=== PATIENT | male | born 1945 | race Caucasian/White ===

== ENCOUNTER 2023-12-17 11:19 | Inpatient (IN) | payer MEDICARE, OTHER ==
[~2023-12-17] VITALS: Ht 182.9 cm; Wt 108.9 kg
[2023-12-17 12:36] LABS: BASOPHILS # (AUTO) 0.1 (0.0-0.1); BASOPHILS % 0.7 % (0.0-1.0); EOSINOPHILS # (AUTO) 0.1 (0.0-0.4); EOSINOPHILS % 1.6 % (0.0-6.0); HEMATOCRIT 42.2 % (38.2-49.6); HEMOGLOBIN 13.8 g/dL (14.0-18.0); LYMPHOCYTES # (AUTO) 1.3 (1.0-3.2); LYMPHOCYTES % 14.5 % (18.0-39.1); MEAN CORPUSCULAR HEMOGLOBIN 30.9 pg (28-32); MEAN CORPUSCULAR HGB CONC 32.7 g/dL (31-35); MEAN CORPUSCULAR VOLUME 94.4 fL (81-99); MONOCYTES # (AUTO) 0.6 (0.2-0.8); MONOCYTES % 6.5 % (4.4-11.3); NEUTROPHILS # (AUTO) 6.6 (2.1-6.9); NEUTROPHILS % 76.2 % (38.7-80.0); PLATELET COUNT 239 x10e3/uL (140-360); RED BLOOD COUNT 4.47 x10e6/uL (4.3-5.7); RED CELL DISTRIBUTION WIDTH 15.8 % (11.7-14.4)
[2023-12-17 12:45] LABS: INR 1.45; PROTHROMBIN TIME 17.9 seconds (11.9-14.5)
[2023-12-17 12:46] LABS: PARTIAL THROMBOPLASTIN TIME 35.2 seconds (23.8-35.5)
[2023-12-17] MEDS: SODIUM CHLORIDE 0.9% 1000ML 1,000 ML IV STA (12:48)
[2023-12-17] MEDS: METHYLPREDNISOLONE SOD SUCC 125 MG/2ML VIAL IV STA (12:48)
[2023-12-17 12:55] LABS: ALBUMIN 3.7 g/dL (3.5-5.0); ALBUMIN/GLOBULIN RATIO 1.1 (0.8-2.0); CALCIUM 9.2 mg/dL (8.4-10.2); CREATININE, SERUM 1.38 mg/dL (0.72-1.25); MAGNESIUM 1.5 MG/DL (1.3-2.1)
[2023-12-17 13:00] LABS: TROPONIN I 0.005 ng/mL (0-0.300)
[2023-12-17] MEDS: FUROSEMIDE INJ 10 MG/ML 4 ML VIAL IV ONE (14:20)
[2023-12-17] MEDS ORDERED: ONDANSETRON HCL INJ 2MG/ML 2ML 2 MG/ML VIAL IV PRN ×3 (14:45→16:45)
[2023-12-17 15:03] VITALS: PULSE 74; RESP 20; O2SAT 96
[2023-12-17] MEDS: FAMOTIDINE 20 MG/2 ML VIAL IV SCH (16:31)
[2023-12-17] MEDS: METOPROLOL TARTRATE 25 MG TAB PO SCH (16:34)
[2023-12-17] MEDS: DIGOXIN INJ 0.25 MG/ML 2 ML AMP IV ONE ×2 (16:35→18:00)
[2023-12-17] MEDS ORDERED: POLYETHYLENE GLYCOL 3350 17 GM PACK PO PRN (16:45)
[2023-12-17] MEDS ORDERED: METOPROLOL TARTRATE INJ 1 MG/ML VIAL IV PRN (16:45)
[2023-12-17] MEDS ORDERED: ACETAMINOPHEN 325 MG TAB PO PRN (16:45)
[2023-12-17] MEDS: DOCUSATE SODIUM 100 MG CAP PO SCH (17:58)
[2023-12-17] MEDS: MAGNESIUM SULFATE 2GM/50ML 50 ML IV ONE (17:59)
[2023-12-17] MEDS: NITROGLYCERIN 2% OINT 1 GM PKT TOP ONE (18:02)
[2023-12-17 18:20] VITALS: PULSE 92; RESP 18; O2SAT 93
[2023-12-17 20:00] VITALS: BP 162/90; PULSE 91; RESP 20; TEMP 98.6; O2SAT 94
[2023-12-17] MEDS: FUROSEMIDE INJ 10 MG/ML 4 ML VIAL IV SCH (21:19)
[2023-12-17] MEDS: MAGNESIUM SULF 1GRAM/DEXTROSE 100 ML IV ONE (21:30)
[2023-12-17 23:44] VITALS: BP 162/90; PULSE 91; RESP 20; TEMP 98.6; O2SAT 94
[2023-12-18] VITALS (12 sets, daily range): BP systolic 140–162; BP diastolic 67–111; PULSE 61–102; RESP 17–21; TEMP 97.6–98.6; O2SAT 93–98
[2023-12-18 06:29] LABS: BASOPHILS % 0.1 % (0.0-1.0); HEMATOCRIT 40.8 % (38.2-49.6); HEMOGLOBIN 13.5 g/dL (14.0-18.0); LYMPHOCYTES # (AUTO) 0.9 (1.0-3.2); LYMPHOCYTES % 13.1 % (18.0-39.1); MEAN CORPUSCULAR HGB CONC 33.1 g/dL (31-35); MEAN CORPUSCULAR VOLUME 93.6 fL (81-99); MONOCYTES # (AUTO) 0.5 (0.2-0.8); MONOCYTES % 7.3 % (4.4-11.3); NEUTROPHILS # (AUTO) 5.6 (2.1-6.9); NEUTROPHILS % 79.2 % (38.7-80.0); PLATELET COUNT 251 x10e3/uL (140-360); RED BLOOD COUNT 4.36 x10e6/uL (4.3-5.7); RED CELL DISTRIBUTION WIDTH 15.6 % (11.7-14.4); WHITE BLOOD COUNT 7.03 x10e3/uL (4.8-10.8)
[2023-12-18 06:52] LABS: ALBUMIN 3.4 g/dL (3.5-5.0); ALBUMIN/GLOBULIN RATIO 1.1 (0.8-2.0); ANION GAP 14.5 mmol/L (8-16); BILIRUBIN,TOTAL 0.8 mg/dL (0.2-1.2); CALCIUM 8.8 mg/dL (8.4-10.2); CREATININE, SERUM 1.17 mg/dL (0.72-1.25); TOTAL PROTEIN 6.5 g/dL (6.5-8.1)
[2023-12-18 07:02] LABS: POTASSIUM 2.5 mmol/L (3.5-5.1)
[2023-12-18 07:19] LABS: TROPONIN I 0.005 ng/mL (0-0.300)
[2023-12-18 07:35] LABS: MAGNESIUM 1.5 MG/DL (1.3-2.1)
[2023-12-18 08:01] LABS: FREE T4 (FREE THYROXINE) 1.08 ng/dL (0.8-1.8); THYROID STIMULATING HORMONE 0.535 uIU/mL (0.350-4.940)
[2023-12-18] MEDS: POTASSIUM CHLORIDE 20 MEQ TAB CR PO ONE ×2 (08:38→17:40)
[2023-12-18] MEDS ORDERED: ONDANSETRON HCL 4 MG ORAL DISINTEGRATING TAB PO PRN (10:45)
[2023-12-18 14:58] LABS: TROPONIN I 0.013 ng/mL (0-0.300)
[2023-12-18] MEDS: FUROSEMIDE INJ 10 MG/ML 4 ML VIAL IV SCH (17:38)
[2023-12-18] MEDS: APIXABAN 5 MG TABLET PO SCH (17:40)
[2023-12-18] MEDS: MELATONIN 5 MG TABLET PO PRN (21:34)
[2023-12-19] VITALS (9 sets, daily range): BP systolic 132–184; BP diastolic 83–100; PULSE 84–113; RESP 17–20; TEMP 97.1–98.2; O2SAT 92–98
[2023-12-19] MEDS: HYDRALAZINE HCL 20 MG/ML VIAL IV PRN (05:08)
[2023-12-19 06:36] LABS: BASOPHILS % 0.4 % (0.0-1.0); EOSINOPHILS # (AUTO) 0.2 (0.0-0.4); EOSINOPHILS % 1.6 % (0.0-6.0); HEMATOCRIT 44.8 % (38.2-49.6); HEMOGLOBIN 14.8 g/dL (14.0-18.0); LYMPHOCYTES # (AUTO) 1.8 (1.0-3.2); LYMPHOCYTES % 18.2 % (18.0-39.1); MEAN CORPUSCULAR HEMOGLOBIN 30.8 pg (28-32); MEAN CORPUSCULAR VOLUME 93.1 fL (81-99); MONOCYTES # (AUTO) 0.7 (0.2-0.8); MONOCYTES % 7.2 % (4.4-11.3); NEUTROPHILS # (AUTO) 7.1 (2.1-6.9); NEUTROPHILS % 72.1 % (38.7-80.0); PLATELET COUNT 267 x10e3/uL (140-360); RED BLOOD COUNT 4.81 x10e6/uL (4.3-5.7); WHITE BLOOD COUNT 9.81 x10e3/uL (4.8-10.8)
[2023-12-19 07:24] LABS: ANION GAP 15.5 mmol/L (8-16); CALCIUM 9.2 mg/dL (8.4-10.2); CREATININE, SERUM 1.09 mg/dL (0.72-1.25); MAGNESIUM 1.5 MG/DL (1.3-2.1)
[2023-12-19 07:26] LABS: POTASSIUM 2.5 mmol/L (3.5-5.1)
[2023-12-19] MEDS ORDERED: FUROSEMIDE INJ 10 MG/ML 4 ML VIAL IV SCH (09:00)
[2023-12-19] MEDS: POTASSIUM CHLORIDE 20MEQ/100ML 100 ML IV ONE (09:07)
[2023-12-19] MEDS: MAGNESIUM SULF 1GRAM/DEXTROSE 100 ML IV ONE (09:08)
[2023-12-19] MEDS: POTASSIUM CHLORIDE 20 MEQ TAB CR PO ONE ×2 (09:09→13:07)
[2023-12-19] MEDS: SACUBITRIL/VALSARTAN 24MG/26MG 1 EA TAB PO SCH (17:12)
[2023-12-19] MEDS: METOPROLOL TARTRATE 50 MG TAB PO SCH (20:24)
[2023-12-20] MEDS ORDERED: DEXTROSE 50% SYRINGE 50 ML IV PRN (00:45)
[2023-12-20 03:08] VITALS: BP 149/110; PULSE 100; RESP 20; TEMP 98; O2SAT 94
[2023-12-20 07:28] LABS: ANION GAP 14.6 mmol/L (8-16); CALCIUM 9.1 mg/dL (8.4-10.2); CREATININE, SERUM 0.86 mg/dL (0.72-1.25)
[2023-12-20 07:37] LABS: POTASSIUM 2.6 mmol/L (3.5-5.1)
[2023-12-20 07:44] VITALS: BP 131/90; PULSE 55; RESP 17; TEMP 98.9; O2SAT 98
[2023-12-20 09:00] VITALS: BP 131/90; PULSE 55; RESP 17; TEMP 98.9; O2SAT 98
[2023-12-20] MEDS: MAGNESIUM SULF 1GRAM/DEXTROSE 100 ML IV ONE (09:31)
[2023-12-20] MEDS: INSULIN LISPRO 100 UNIT/1 ML 3ML VIAL SQ SCH (09:43)
[2023-12-20 11:50] VITALS: BP 118/83; PULSE 94; RESP 16; TEMP 97.8; O2SAT 95
[2023-12-20] MEDS: POTASSIUM CHLORIDE 20 MEQ TAB CR PO ONE ×2 (12:53→15:05)
[2023-12-20] MEDS ORDERED: ENTRESTO 24 MG1 EACH PO (14:25)
[2023-12-20] MEDS ORDERED: ELIQUIS5 MG PO (14:25)
[2023-12-20] MEDS ORDERED: ONDANSETRON ODT4 MG PO (14:25)
[2023-12-20] MEDS ORDERED: KLOR-CON M2020 MEQ PO (15:03)
[2023-12-20] MEDS ORDERED: LASIX40 MG PO (15:03)
[2023-12-20] MEDS ORDERED: METOPROLOL SUC100 MG PO (15:03)
[2023-12-20] MEDS ORDERED: MAG-OXIDE400 MG PO (15:05)
[2023-12-20] MEDS: MAGNESIUM SULFATE 2GM/50ML 50 ML IV ONE (15:08)
[2023-12-20] MEDS ORDERED: METFORMIN HCL500 MG PO (15:09)
[2023-12-20 16:01] VITALS: BP 134/87; PULSE 81; RESP 18; TEMP 97.8; O2SAT 99
[2023-12-20] MEDS: METFORMIN HCL 500 MG TAB PO SCH (17:32)
[2023-12-20] MEDS ORDERED: POTASSIUM CHLORIDE 20 MEQ TAB CR PO ONE (17:45)
[2023-12-20] MEDS: POTASSIUM CHLORIDE 20 MEQ TAB CR PO STA (17:49)
[2023-12-21] MEDS ORDERED: METOPROLOL SUCCINATE 50 MG TAB XL PO SCH (09:00)
== END 2023-12-20 17:49 | disposition home or self-care (01) | DRG 291 ==
LOC: ER 11:33 → ERHOLD 14:43 → MED/SURG3 19:08
PROVIDERS: ADMIT Internal Medicine; ATTEND Internal Medicine
DX: I11.0 Hypertensive heart disease with heart failure (principal); I50.21 Acute systolic (congestive) heart failure; N17.9 Acute kidney failure, unspecified; I48.0 Paroxysmal atrial fibrillation; J44.9 Chronic obstructive pulmonary disease, unspecified; I25.10 Atherosclerotic heart disease of native coronary artery without angina pectoris; E66.9 Obesity, unspecified; I08.0 Rheumatic disorders of both mitral and aortic valves; E11.65 Type 2 diabetes mellitus with hyperglycemia; E83.42 Hypomagnesemia; E87.6 Hypokalemia; Z68.32 Body mass index [BMI] 32.0-32.9, adult; Z87.891 Personal history of nicotine dependence; Z20.822 Contact with and (suspected) exposure to COVID-19; Z79.01 Long term (current) use of anticoagulants
CPT/HCPCS: 36415; 71045; 80048; 80053; 80061; 82550; 82948; 83036; 83735; 83880; 84100; 84132; 84439; 84443; 84484; 85025; 85610; 85730; 87040; 87400; 87420; 93005; 93306; 94799; 99252; 99284; J0360; J0696; J1160; J1940; J2930; J3475; J3480; J7030; J7050; U0002